=== PATIENT | male | born 1980 | race Hispanic/Latino ===

== ENCOUNTER 2018-11-16 05:50 | Day surgery (SDC) | payer OTHER ==
[~2018-11-16] VITALS: Ht 182.9 cm; Wt 109.3 kg
[~2018-11-16 05:50] MED LIST: SYNTHROID112 MCG PO
[2018-11-16] MEDS ORDERED: TRAMADOL HCL50 MG PO (06:09)
--- NOTE | 2018-11-16 07:24 | NUR ---
11/16/18 0724 Josee Hebert 0711- PT UNDER GENERAL ANESTHESIA AND BLOCK IN DS ROOM 11. PROCEDURE COMPLETED IN DS ROOM 11. PT TO PACU PHASE AT 0711 ON 5 L VIA MASK WITH SATS 95%. PT AROUSABLE TO VERBAL STIMULUS BUT FALLS BACK ASLEEP. VSS. 0715- VSS. PT AWAKE AND SITTING UP IN BED. PT TITRATED TO RA WITH SATS 95%. PT DENIES PAIN/NAUSEA. 0720- PT ALERT AND ORIENTED. VSS. PT DENIES PAIN/NAUSEA.
--- NOTE | 2018-11-16 07:38 | NUR ---
PT REMIANS IN DS ROOM 11 FOLLOWING PROCEDURE/PACU. PT ON RA WITH SATS >90%. PT AWAKE AND OREINTED. VSS. PT DENIES PAIN/NAUSEA. [facility] IN ROOM WITH CALL LIGHT IN REACH. WATER AND CRACKERS PROVIDED TO PT
[2018-11-16] MEDS ORDERED: ULTRAM50 MG PO (07:54)
--- NOTE | 2018-11-16 08:02 | NUR ---
PT TOLERATES PO FLUIDS AND CRACKERS. DENIE SNAUSEA. VSS. PT DENIES PAIN AND REPORTS ARM IS NUMB/TINGLING. PT MEETS DC CRITERIA FOR MAC PROCEDURE
--- NOTE | 2018-11-16 08:11 | NUR ---
0800- IV DC'D WNL. PT IN STABLE CONDITION. DC INSTRUCTIONS WITH PRECAUTIONS PROVIDED TO PT. PRESCRIPTION GIVEN. PT DENIES FURTHER QUESTIONS AND VERBALIZES UNDERSTANDING. PT TRANSPORTED IN WHEELCHAIR BY [facility].
--- NOTE | 2018-11-16 09:58 | NUR ---
[facility]
--- NOTE | 2018-11-21 07:11 | OR ---
[facility] [address] [place], [place] [address] Signed DATE OF OPERATION: 11/16/2018 SURGEON: Froy Schaefer MD PREOPERATIVE DIAGNOSIS: Frozen shoulder, right. POSTOPERATIVE DIAGNOSIS: Frozen shoulder, right. PROCEDURE: Shoulder manipulation, right. ANESTHESIA: Block with sedation. SPECIMENS AND COMPLICATIONS: There were no specimens or complications. WHAT WAS DONE: The patient was in the Day Surgery area. A supraclavicular brachial plexus block had been performed by the Anesthesia Service and the patient was gently sedated with some IV propofol. We were then able to manipulate the shoulder into about 160 degrees of flexion and about 160 degrees of abduction and about 65 degrees of external rotation. With rather resound of releasing scar tissue. The shoulder was then prepped and injected with 8 mL of 1% plain xylocaine and 2 mL of Depo-Medrol. A documentary photograph was taken with the patient holding his arm in maximum abduction. He was left in Day Surgery where he was going to be recovered by the staff. Froy Schaefer MD [facility]/MODL /[id number] Electronically Signed By: FROY SCHAEFER MD 11/21/18 0711 PATIENT NAME: ALANNA NARAYANAN OPERATIVE REPORT DATE OF : 80 REPORT #: [id number] PHYSICIAN: FROY SCHAEFER MD PCP: BETTIE TRINH MD REPORT IS CONFIDENTIAL AND NOT TO BE RELEASED WITHOUT AUTHORIZATION [address] [address] Signed Copies: ~ Electronically Signed By: FROY SCHAEFER MD 11/21/18 0711 PATIENT NAME: ALANNA NARAYANAN OPERATIVE REPORT DATE OF : 80 REPORT #: [id number] PHYSICIAN: FROY SCHAEFER MD PCP: BETTIE TRINH MD REPORT IS CONFIDENTIAL AND NOT TO BE RELEASED WITHOUT AUTHORIZATION
== END 2018-11-16 08:10 | disposition home or self-care (01) ==
LOC: DS 05:50 → OPS 05:50 → DS 06:45 → OPS 06:45
PROVIDERS: Orthopaedic Surgery
PROC: 0RNJXZZ Release Right Shoulder Joint, External Approach (ICD-10-PCS; principal; 2018-11-16 06:45)
DX: M75.01 Adhesive capsulitis of right shoulder (principal); Z87.891 Personal history of nicotine dependence
CPT/HCPCS: 01620; 64415; 76942; J2704; J3301